=== PATIENT | male | born 1985 | race Caucasian/White ===

== ENCOUNTER 2017-01-05 12:31 | Inpatient (IN) | payer BC ==
[2017-01-05] MEDS ORDERED: Ondansetron 4 MG/2 ML SDV IVPUSH ONE (14:00)
[2017-01-05] MEDS ORDERED: Sodium Chloride 0.9% 1,000 ML IV ONE ×2 (14:00→16:13)
[2017-01-05] MEDS ORDERED: Pantoprazole 40 MG Vial IVPUSH ONE (14:00)
--- NOTE | 2017-01-05 14:01 | EDM.PDOC ---
ED HPI GENERAL MEDICAL PROBLEM - General Chief Complaint: Abdominal Pain Stated Complaint: ABDOMINAL PAIN Time Seen by Provider: 01/05/17 12:34 - History of Present Illness INITIAL COMMENTS - FREE TEXT/NARRATIVE: HISTORY AND PHYSICAL: History of present illness: []Patient presents with epigastric pain he rates 7 out of 10 radiating to the back he also has an element of left upper quadrant pain no fever intermittent nausea is been unable to eat without pain for several days does admit to drinking alcohol he prefers to drink whiskey he admits to drinking heavily 2 weeks prior, limited drinking over the last week due to pain. No fever vomiting chills sweats Review of systems: As per history of present illness and below otherwise all systems reviewed and negative. Past medical history: As per history of present illness and as reviewed below otherwise noncontributory. Surgical history: As per history of present illness and as reviewed below otherwise noncontributory. Social history: No reported history of drug or alcohol abuse. Family history: As per history of present illness and as reviewed below otherwise noncontributory. Physical exam: HEENT: Atraumatic, normocephalic, pupils reactive, negative for conjunctival pallor or scleral icterus, mucous membranes moist, throat clear, neck supple, nontender, trachea midline. Lungs: Clear to auscultation, breath sounds equal bilaterally, chest nontender. Heart: S1S2, regular, negative for clicks, rubs, or JVD. Abdomen: Soft, nondistended, nontender in the right upper and lower quadrants no guarding or rebound there is epigastric tenderness as well as left upper quadrant tenderness. Negative for masses or hepatosplenomegaly. Negative for costovertebral tenderness. Pelvis: Stable nontender. Genitourinary: Deferred. Rectal: Deferred. Extremities: Atraumatic, negative for cords or calf pain. Neurovascular unremarkable. Neuro: Awake, alert, oriented. Cranial nerves II through XII unremarkable. Cerebellum unremarkable. Motor and sensory unremarkable throughout. Exam nonfocal. Diagnostics: []Lab as below CT with contrast Therapeutics: [1 L normal saline bolus Zofran 8 mg IV Morphine 2 mg IV ] Impression: [Acute pancreatitis Leukocytosis] Definitive disposition and diagnosis as appropriate pending reevaluation and review of above. LUQ Pain Score (Numeric/FACES): 7 - Related Data Allergies Allergy/AdvReac Type Severity Reaction Status Date / Time ibuprofen Allergy Swollen Verified 01/05/17 13:55 Tongue Home Meds: Home Meds . [No Known Home Meds] 01/05/17 [History] Past Medical History HEENT History: Reports: Other (See Below) Other HEENT History: tubes in both ears - Past Surgical History Musculoskeletal Surgical History: Reports: Other (See Below) Social & Family History - Tobacco Use Smoking Status *Q: Current Every Day Smoker Years of Tobacco use: 10 Packs/Tins Daily: 3 Used Tobacco, but Quit: No Second Hand Smoke Exposure: Yes - Caffeine Use Caffeine Use: Reports: Coffee, Energy Drinks - Recreational Drug Use Recreational Drug Use: No ED ROS GENERAL - Review of Systems Review Of Systems: ROS reveals no pertinent complaints other than HPI. ED EXAM, GENERAL - Physical Exam Exam: See Below Course - Vital Signs Last Recorded V/S: Last Vital Signs Temp 37.2 C 01/05/17 13:56 Pulse 98 01/05/17 13:56 Resp 18 01/05/17 13:56 BP 157/91 H 01/05/17 13:56 Pulse Ox 96 01/05/17 13:56 - Orders/Labs/Meds Labs: Laboratory Tests 01/05/17 01/05/17 01/05/17 Range/Units 14:11 14:11 14:11 WBC 14.20 H (4.0-11.0) K/uL RBC 5.19 (4.50-5.90) M/uL Hgb 15.9 (13.0-17.0) g/dL Hct 46.5 (38.0-50.0) % MCV 89.6 (80.0-98.0) fL MCH 30.6 (27.0-32.0) pg MCHC 34.2 (31.0-37.0) g/dL RDW Std Deviation 44.4 (28.0-62.0) fl RDW Coeff of Ananda 14 (11.0-15.0) % Plt Count 289 (150-400) K/uL MPV 10.50 (7.40-12.00) fL Neut % (Auto) 69.9 (48.0-80.0) % Lymph % (Auto) 20.8 (16.0-40.0) % Louis[place] % (Auto) 6.3 (0.0-15.0) % Eos % (Auto) 2.6 (0.0-7.0) % Baso % (Auto) 0.4 (0.0-1.5) % Neut # (Auto) 9.9 H (1.4-5.7) K/uL Lymph # (Auto) 3.0 H (0.6-2.4) K/uL Louisa # (Auto) 0.9 H (0.0-0.8) K/uL Eos # (Auto) 0.4 (0.0-0.7) K/uL Baso # (Auto) 0.1 (0.0-0.1) K/uL Nucleated RBC % 0.0 /100WBC Nucleated RBCs # 0 K/uL Sodium 137 (136-146) mmol/L Potassium 3.9 (3.5-5.1) mmol/L Chloride 105 (98-110) mmol/L Carbon Dioxide 19 L (21-31) mmol/L BUN 18 (6.0-23.0) mg/dL Creatinine 1.2 (0.6-1.5) mg/dL Est Cr Clr Drug Dosing 114.47 mL/min Estimated GFR (MDRD) > 60.0 ml/min Glucose 113 H (60-110) mg/dL Calcium 10.0 (8.8-10.8) mg/dL Total Bilirubin 0.3 (0.1-1.5) mg/dL AST 34 (5-40) IU/L ALT 56 H (8-54) IU/L Alkaline Phosphatase 63 (40-150) Troponin I < 0.10 (0.0-0.29) NG/ML Total Protein 7.7 (6.0-8.0) g/dL Albumin 4.1 (3.5-5.0) g/dL Globulin 3.6 H (2.0-3.5) g/dL Albumin/Globulin Ratio 1.1 L (1.3-2.8) Amylase 54 (10-90) U/L Lipase 187 H (7-80) U/L Urine Color Urine Appearance Urine pH (5.0-8.0) Ur Specific [place] (1.001-1.035) Urine Protein (NEGATIVE) mg/dL Urine Glucose (UA) (NEGATIVE) mg/dL Urine Ketones (NEGATIVE) mg/dL Urine Occult Blood (NEGATIVE) Urine Nitrite (NEGATIVE) Urine Bilirubin (NEGATIVE) Urine Urobilinogen (<2.0) EU/dL Ur Leukocyte Esterase (NEGATIVE) Urine RBC (0-2/HPF) Urine WBC (0-5/HPF) Ur Epithelial Cells (NONE-FEW) Urine Bacteria (NEGATIVE) 01/05/17 Range/Units 14:36 WBC (4.0-11.0) K/uL RBC (4.50-5.90) M/uL Hgb (13.0-17.0) g/dL Hct (38.0-50.0) % MCV (80.0-98.0) fL MCH (27.0-32.0) pg MCHC (31.0-37.0) g/dL RDW Std Deviation (28.0-62.0) fl RDW Coeff of Ananda (11.0-15.0) % Plt Count (150-400) K/uL MPV (7.40-12.00) fL Neut % (Auto) (48.0-80.0) % Lymph % (Auto) (16.0-40.0) % [place] % (Auto) (0.0-15.0) % Eos % (Auto) (0.0-7.0) % Baso % (Auto) (0.0-1.5) % Neut # (Auto) (1.4-5.7) K/uL Lymph # (Auto) (0.6-2.4) K/uL [place] # (Auto) (0.0-0.8) K/uL Eos # (Auto) (0.0-0.7) K/uL Baso # (Auto) (0.0-0.1) K/uL Nucleated RBC % /100WBC Nucleated RBCs # K/uL Sodium (136-146) mmol/L Potassium (3.5-5.1) mmol/L Chloride (98-110) mmol/L Carbon Dioxide (21-31) mmol/L BUN (6.0-23.0) mg/dL Creatinine (0.6-1.5) mg/dL Est Cr Clr Drug Dosing mL/min Estimated GFR (MDRD) ml/min Glucose (60-110) mg/dL Calcium (8.8-10.8) mg/dL Total Bilirubin (0.1-1.5) mg/dL AST (5-40) IU/L ALT (8-54) IU/L Alkaline Phosphatase (40-150) Troponin I (0.0-0.29) NG/ML Total Protein (6.0-8.0) g/dL Albumin (3.5-5.0) g/dL Globulin (2.0-3.5) g/dL Albumin/Globulin Ratio (1.3-2.8) Amylase (10-90) U/L Lipase (7-80) U/L Urine Color YELLOW Urine Appearance CLEAR Urine pH 6.0 (5.0-8.0) Ur Specific [place] 1.015 (1.001-1.035) Urine Protein NEGATIVE (NEGATIVE) mg/dL Urine Glucose (UA) NEGATIVE (NEGATIVE) mg/dL Urine Ketones NEGATIVE (NEGATIVE) mg/dL Urine Occult Blood TRACE-LYSED (NEGATIVE) Urine Nitrite NEGATIVE (NEGATIVE) Urine Bilirubin NEGATIVE (NEGATIVE) Urine Urobilinogen 0.2 (<2.0) EU/dL Ur Leukocyte Esterase NEGATIVE (NEGATIVE) Urine RBC 0-1 (0-2/HPF) Urine WBC 0-1 (0-5/HPF) Ur Epithelial Cells OCCASIONAL (NONE-FEW) Urine Bacteria RARE (NEGATIVE) Meds: Medications Discontinued Medications Generic Name Dose Route Start Last Admin Trade Name Karthikq PRN Reason Stop Dose Admin Sodium Chloride 1,000 mls @ 999 mls/hr 01/05/17 14:00 01/05/17 14:15 Normal Saline IV 01/05/17 15:00 999 mls/hr STAT ONE Administration Iopamidol 100 ml 01/05/17 15:06 01/05/17 15:07 Isovue Multipack-370 (76%) IVPUSH 01/05/17 15:07 100 ml ONETIME STA Administration Ondansetron HCl 8 mg 01/05/17 14:00 01/05/17 14:16 Zofran IVPUSH 01/05/17 14:01 8 mg ONETIME ONE Administration Pantoprazole Sodium 80 mg 01/05/17 14:00 01/05/17 14:16 Protonix Iv IVPUSH 01/05/17 14:01 80 mg .BOLUS ONE Administration Departure - Departure Time of Disposition: 16:12 Disposition: Admitted As Inpatient 68 Condition: Fair Clinical Impression: Acute pancreatitis - Discharge Information Referrals: PCP,None [Primary Care Provider] - Forms: ED Department Discharge
[2017-01-05 14:42] LABS: CHLORIDE,CL 105 mmol/L (98-110); SODIUM,NA 137 mmol/L (136-146)
[2017-01-05] MEDS ORDERED: Iopamidol 755 MG/ML 500 ML Multipack Bottle IVPUSH STA (15:06)
--- NOTE | 2017-01-05 15:38 | CT ---
CT of the abdomen and pelvis with contrast. HISTORY: Pain TECHNIQUE: Axial CT images were obtained of the abdomen and pelvis following administration of 100 mL of Isovue-370 in the left antecubital fossa without complication. Coronal and sagittal reconstructio ns obtained. FINDINGS: The lungs are clear without focal consolidation. There is fatty infiltration of the liver. The gallbladder, adrenal glands, and spleen appear normal. The pancreas is normal. There is no bulky retroperitoneal lymphadenopathy or abdominal ascites. The kidneys enhance and function symmetrically without evidence of obstructive uropathy. The large and small bowel are normal in caliber without evidence of obstruction. No focal pericolonic inflammation or stranding. The appendix is normal. The urinary bladder is normal. There is no bulky pelvic lymphadenopathy or free pelvic fluid. No suspicious osseous abnormalities identified. IMPRESSION: 1. No acute findings within the abdomen or pelvis. 2. Fatty infiltration of the liver.
[2017-01-05] MEDS ORDERED: Morphine 10 MG/ML Syringe IV ONE (16:13)
[2017-01-05] MEDS ORDERED: Ondansetron 4 MG/2 ML SDV IVPUSH PRN (17:09)
[2017-01-05] MEDS ORDERED: HYDROmorphone 2 MG/ML Syringe IVPUSH PRN (17:09)
--- NOTE | 2017-01-05 17:43 | PCM.HP ---
<Dina Dent M - Last Filed: 01/05/17 18:07> H&P History of Present Illness - General Date of Service: 01/05/17 Admit Problem/Dx: Admission Diagnosis/Problem Admission Diagnosis/Problem Pancreatitis Source of Information: Patient History Limitations: Reports: No Limitations - History of Present Illness Initial Comments - Free Text/Narative: This 31 year old male with pmh of tubes to bilateral ears, heavy tobacco use and obesity presented to the ED today with 1 week of left abdominal pain and epigastric pain. He reports this pain started about 1 week ago, denies fever, lower abdominal pain, some diarrhea, but this is not changed from his normal. Some pain with eating but no nausea or vomiting. He confirms drinking heavily a couple weeks ago and having a few nights with drinking, but denies drinking on a daily basis. He did have a few drinks last evening which worsened his pain. He does have a history of gastric ulcers and GERD. He normally just takes Tums for this. He is allergic to NSAIDs, so he does not take these. He also mentioned his R ear has been sore lately, with some drainage noted. In the ED leukocytosis noted, 14,000 lipase 187. Abdominal/Pelvis CT revealed no acute findings, but noted fatty infiltration of liver. He will be admitted for pancreatitis. He was given 1 l bolus NS in ED and morphine for pain. LUQ Pain Score (Numeric/FACES): 7 - Related Data Allergies/Adverse Reactions: Allergies Allergy/AdvReac Type Severity Reaction Status Date / Time ibuprofen Allergy Swollen Verified 01/05/17 13:55 Tongue Home Medications: Home Meds . [No Known Home Meds] 01/05/17 [History] Past Medical History HEENT History: Reports: Other (See Below) Other HEENT History: tubes in both ears Cardiovascular History: Reports: None. Denies: Afib, Blood Clots/VTE/DVT, CAD, Hypertension, [place] Respiratory History: Reports: None. Denies: Asthma, COPD Gastrointestinal History: Reports: GERD Genitourinary History: Reports: None Musculoskeletal History: Reports: Fracture Endocrine/Metabolic History: Reports: Obesity/BMI 30+. 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 Denies: Fever, Chills, Malaise HEENT: Reports: Ear Pain (R ear) Pulmonary: Reports: No Symptoms. Denies: Shortness of Breath, Cough, Sputum Cardiovascular: Reports: No Symptoms. Denies: Chest Pain, Palpitations, Edema Gastrointestinal: Reports: Abdominal Pain (L upper and epigastric), Decreased Appetite, Flatus. Denies: Black Stool, Bloody Stool, Distension, Nausea, Vomiting Genitourinary: Reports: No Symptoms. Denies: Dysuria, Frequency, Burning Musculoskeletal: Reports: No Symptoms. Denies: Neck Pain Skin: Reports: No Symptoms Psychiatric: Reports: No Symptoms Hematologic/Lymphatic: Reports: No Symptoms Immunologic: Reports: No Symptoms Exam - Exam Exam: See Below - Vital Signs Vital Signs: Last Vital Signs Temp 98.9 F 01/05/17 13:56 Pulse 98 01/05/17 13:56 Resp 18 01/05/17 13:56 BP 157/91 H 01/05/17 13:56 Pulse Ox 96 01/05/17 13:56 Weight: 180 kg - Exam General: Alert, Oriented, Cooperative HEENT: Conjunctiva Clear, Mucosa Moist & [place], Nares Patent, Pupils Reactive. No: TMs Clear (R TM has pe tube noted, with erythema and purulence. L ear TM clear no tube noted, no erythema) Neck: Supple, Trachea Midline, 2 Lungs: Clear to Auscultation, Normal Respiratory Effort Cardiovascular: Regular Rate, Regular Rhythm, Normal S1, Normal S2 GI/Abdominal Exam: Normal Bowel Sounds, Soft, No Distention, Tender (Epigastric region and L upper abd. ), Other (obese abdomen.) Extremities: Normal Inspection, Normal Range of Motion, Non-Tender, No Pedal Edema, Normal Capillary Refill Skin: Other (multiple small abrasion and scabs to arms and chest. Patient reports) Neurological: Cranial Nerves Intact Neuro Extensive - Mental Status: Alert, Oriented x3 Psychiatric: Alert, Normal Affect, Normal Mood - Patient Data Result Diagrams: 01/05/17 14:11 01/05/17 14:11 *Q Meaningful Use (ADM) - VTE *Q VTE Criteria *Q: - Stroke *Q Stroke Criteria *Q: - AMI *Q AMI Criteria *Q: - Problem List (1) Acute pancreatitis SNOMED Code(s): 808044167 ICD Code: K85.90 - ACUTE PANCREATITIS WITHOUT NECROSIS OR INFECTION, UNSP Status: Acute Current Visit: Yes QualifierTitle: Pancreatitis type: alcohol induced Acute pancreatitis complication: no infection or necrosis Qualified Code(s): K85.20 - Alcohol induced acute pancreatitis without necrosis or infection (2) Acute otitis media SNOMED Code(s): 6072292 ICD Code: H66.90 - OTITIS MEDIA, UNSPECIFIED, UNSPECIFIED EAR Status: Acute Current Visit: Yes QualifierTitle: Otitis media type: serous Laterality: right Recurrence : not specified as recurrent Qualified Code(s): H65.01 - Acute serous otitis media, right ear (3) Obesity SNOMED Code(s): 484637953 ICD Code: E66.9 - OBESITY, UNSPECIFIED Status: Chronic Current Visit: Yes QualifierTitle: Obesity type: due to excess calories Serious obesity comorbidity presence: without serious comorbidity Body mass index: BMI 45.0- 49.9 Problem List Initiated/Reviewed/Updated: Yes Orders Last 24hrs: Active Orders 24 hr Category Date Time Status Intake and Output [RC] QSHIFT Care 01/05/17 17:10 Ordered Oxygen Therapy [RC] PRN Care 01/05/17 17:09 Ordered Up ad Tere [RC] ASDIRECTED Care 01/05/17 17:09 Ordered VTE/DVT Education [RC] PER UNIT ROUTINE Care 01/05/17 17:09 Ordered Vital Signs [RC] Q4H Care 01/05/17 17:09 Ordered Nothing Per Oral Diet [DIET] Diet 01/06/17 Breakfast Ordered Abdomen Comp [US] Urgent Exams 01/05/17 17:12 Ordered CBC WITH AUTO DIFF [HEME] AM Lab 01/06/17 05:11 Ordered CBC WITH AUTO DIFF [HEME] AM Lab 01/07/17 05:11 Ordered CBC WITH AUTO DIFF [HEME] AM Lab 01/08/17 05:11 Ordered COMPREHENSIVE METABOLIC PN,CMP [CHEM] AM Lab 01/06/17 05:11 Ordered COMPREHENSIVE METABOLIC PN,CMP [CHEM] AM Lab 01/07/17 05:11 Ordered COMPREHENSIVE METABOLIC PN,CMP [CHEM] AM Lab 01/08/17 05:11 Ordered LIPASE [CHEM] Routine Lab 01/06/17 05:00 Ordered Enoxaparin [Lovenox] Med 01/06/17 09:00 Ordered 40 mg SUBCUT DAILY HYDROmorphone [Dilaudid] Med 01/05/17 17:09 Ordered 0.5 mg IVPUSH Q2H PRN Nicotine [Habitrol] Med 01/05/17 17:45 Ordered 21 mg TRDERM DAILY Ondansetron [Zofran] Med 01/05/17 17:09 Ordered 4 mg IVPUSH Q4H PRN Pantoprazole [ProTONIX IV] 40 mg Med 01/06/17 09:00 Active Sodium Chloride 0.9% [Normal Saline] 10 ml IV DAILY Sodium Chloride 0.9% [Normal Saline] 1,000 ml Med 01/05/17 17:15 Ordered IV .BOLUS Sodium Chloride 0.9% [Normal Saline] 1,000 ml Med 01/05/17 17:15 Ordered IV ASDIRECTED Resuscitation Status Routine Resus Stat 01/05/17 17:09 Ordered Medication Orders Enoxaparin Sodium (Lovenox) 40 mg SUBCUT DAILY JODY Hydromorphone HCl (Dilaudid) 0.5 mg IVPUSH Q2H PRN PRN Reason: Pain (severe 7-10) Sodium Chloride (Normal Saline) 1,000 mls @ 250 mls/hr IV ASDIRECTED JODY Sodium Chloride (Normal Saline) 1,000 mls @ 999 mls/hr IV .BOLUS JODY Pantoprazole Sodium 40 mg/ (Sodium Chloride) 10 mls @ 300 mls/hr IV DAILY JODY Nicotine (Habitrol) 21 mg TRDERM DAILY JODY Ondansetron HCl (Zofran) 4 mg IVPUSH Q4H PRN PRN Reason: Nausea Assessment/Plan Comment:: This 31 year old male admitted with acute pancreatitis likely alcohol induced. 1. Acute pancreatitis: Will obtain RUQ U/S to rule out stones. Lipid panel reveals Triglycerides 366, non fasting. No at home medications. Likely linked to recent heavy alcohol intake. Will treat with 2 L bolus now and then NS at 250 ml/hr. Leukocytosis noted, will monitor no antibiotics needed at this time, no necrosis noted on CT. Will monitor lipase in am and CMP. Supplement with thiamine and folic acid. Denies daily alcohol intake 2. Acute otitis media: R ear, discussed with Dr. Adams. Will order Cipro HC Otic drops BID. Monitor. No fevers. 3. Heavy tobacco use: Encouraged to stop, he reports no urge to stop at this time. Nicotine patch 21 mg daily. 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 VTE prophylaxis: Lovenox. Discussed code status with patient, he reports wanting to be DNR, "If my heart stops, don't restart it, I am already gone, what is the use." He will be changed to DNR. <Tre Adams - Last Filed: 01/05/17 22:24> H&P History of Present Illness - General Admit Problem/Dx: Admission Diagnosis/Problem Admission Diagnosis/Problem Pancreatitis Exam - Vital Signs Vital Signs: Last Vital Signs Temp 36.4 C 01/05/17 20:00 Pulse 79 01/05/17 20:00 Resp 20 01/05/17 20:00 BP 125/74 01/05/17 20:00 Pulse Ox 98 01/05/17 20:00 - Patient Data Result Diagrams: 01/05/17 14:11 01/05/17 14:11 *Q Meaningful Use (ADM) - VTE *Q VTE Criteria *Q: - Stroke *Q Stroke Criteria *Q: - AMI *Q AMI Criteria *Q: Orders Last 24hrs: Active Orders 24 hr Category Date Time Status Intake and Output [RC] QSHIFT Care 01/05/17 17:10 Active Oxygen Therapy [RC] PRN Care 01/05/17 17:09 Active Up ad Tere [RC] ASDIRECTED Care 01/05/17 17:09 Active VTE/DVT Education [RC] PER UNIT ROUTINE Care 01/05/17 17:09 Active Vital Signs [RC] Q4H Care 01/05/17 17:09 Active Nothing Per Oral Diet [DIET] Diet 01/06/17 Breakfast Active Abdomen Comp [US] Urgent Exams 01/05/17 17:12 Ordered CBC WITH AUTO DIFF [HEME] AM Lab 01/06/17 05:11 Ordered CBC WITH AUTO DIFF [HEME] AM Lab 01/07/17 05:11 Ordered CBC WITH AUTO DIFF [HEME] AM Lab 01/08/17 05:11 Ordered COMPREHENSIVE METABOLIC PN,CMP [CHEM] AM Lab 01/06/17 05:11 Ordered COMPREHENSIVE METABOLIC PN,CMP [CHEM] AM Lab 01/07/17 05:11 Ordered COMPREHENSIVE METABOLIC PN,CMP [CHEM] AM Lab 01/08/17 05:11 Ordered LIPASE [CHEM] Routine Lab 01/06/17 05:00 Ordered Ciprofloxacin/Hydrocortisone [Cipro HC Otic Susp] Med 01/05/17 17:45 Active 3 ml EARRT BID Enoxaparin [Lovenox] Med 01/06/17 09:00 Active 40 mg SUBCUT DAILY HYDROmorphone [Dilaudid] Med 01/05/17 17:09 Active 0.5 mg IVPUSH Q2H PRN Nicotine [Habitrol] Med 01/05/17 17:45 Active 21 mg TRDERM DAILY Ondansetron [Zofran] Med 01/05/17 17:09 Active 4 mg IVPUSH Q4H PRN Pantoprazole [ProTONIX IV] 40 mg Med 01/06/17 09:00 Active Sodium Chloride 0.9% [Normal Saline] 10 ml IV DAILY Sodium Chloride 0.9% [Normal Saline] 1,000 ml Med 01/05/17 17:15 Active IV ASDIRECTED Resuscitation Status Routine Resus Stat 01/05/17 17:09 Ordered Medication Orders Ciprofloxacin/Hydrocortisone (Cipro Hc Otic Susp) 3 ml EARRT BID JODY Last Admin: 01/05/17 20:28 Dose: 3 drop Admin: 01/05/17 20:09 Dose: Enoxaparin Sodium (Lovenox) 40 mg SUBCUT DAILY JODY Hydromorphone HCl (Dilaudid) 0.5 mg IVPUSH Q2H PRN PRN Reason: Pain (severe 7-10) Last Admin: 01/05/17 21:59 Dose: 0.5 mg Sodium Chloride (Normal Saline) 1,000 mls @ 250 mls/hr IV ASDIRECTED JODY Last Admin: 01/05/17 20:29 Dose: 250 mls/hr Pantoprazole Sodium 40 mg/ (Sodium Chloride) 10 mls @ 300 mls/hr IV DAILY JODY Nicotine (Habitrol) 21 mg TRDERM DAILY [facility] Last Admin: 01/05/17 19:37 Dose: 21 mg Ondansetron HCl (Zofran) 4 mg IVPUSH Q4H PRN PRN Reason: Nausea - Free Text/Narrative Note: Dr. Adams writes: I am seeing this patient and have evaluated his condition and laboratory studies. Agree with Salina Dent AUDIT CONSULTANT's evaluation, plan, and write up.
[2017-01-05] MEDS: Sodium Chloride 0.9% 1,000 ML IV SCH ×3 (18:43→20:29)
[2017-01-05] MEDS: Nicotine 21 MG/24 Hr Patch TRDERM SCH (19:37)
[2017-01-05] MEDS: Ciprofloxacin/Hydrocortisone Otic Susp 10 ML Bottle EARRT SCH ×2 (20:09→20:28)
[2017-01-06] MEDS: Sodium Chloride 0.9% 1,000 ML IV SCH ×3 (00:37→10:23)
[2017-01-06 06:04] LABS: CHLORIDE,CL 110 mmol/L (98-110); SODIUM,NA 141 mmol/L (136-146)
--- NOTE | 2017-01-06 08:07 | PCM.PN ---
<Dina Dent M - Last Filed: 01/06/17 10:01> - General Info Date of Service: 01/06/17 Admission Dx/Problem (Free Text): Admission Diagnosis/Problem Admission Diagnosis/Problem Pancreatitis Subjective Update: Doing better this am, hoping to start diet today. Pain is better, no nausea and no vomiting. Getting anxious and frustrated due to the inability to smoke or use tobacco products, Nicotine patch in place. Denies chest pain or SOB. abdomen is slightly tender, but wants to try diet. No pain meds since 2100 last evening. Functional Status: Reports: Pain Controlled, Ambulating, Urinating - Review of Systems General: Reports: No Symptoms. Denies: Fever HEENT: Reports: No Symptoms. Denies: Ear Pain, Headaches, Visual Changes Pulmonary: Reports: No Symptoms. Denies: Shortness of Breath, Pleuritic Chest Pain, Cough Cardiovascular: Reports: No Symptoms. Denies: Chest Pain, Palpitations Gastrointestinal: Reports: Abdominal Pain (tedner to epigastrium and LUQ), Flatus. Denies: Nausea, Vomiting Genitourinary: Reports: No Symptoms. Denies: Dysuria, Frequency Musculoskeletal: Reports: No Symptoms Psychiatric: Reports: Anxiety (due to lack of ability to smoke or use chewing tobacco) - Patient Data Vitals - Most Recent: Last Vital Signs Temp 98.7 F 01/06/17 04:00 Pulse 76 01/06/17 04:00 Resp 20 01/06/17 04:00 BP 132/58 L 01/06/17 04:00 Pulse Ox 96 01/06/17 04:00 Weight - Most Recent: 180 kg I&O - Last 24 Hours: Intake & Output 01/05/17 01/06/17 01/06/17 22:59 06:59 14:59 Intake Total 1000 2000 Output Total 1650 Balance 1000 350 Lab Results Last 24 Hours: Laboratory Results - last 24 hr 01/06/17 01/06/17 01/06/17 Range/Units 04:52 04:52 04:52 WBC 10.14 (4.0-11.0) K/uL RBC 4.76 (4.50-5.90) M/uL Hgb 14.5 (13.0-17.0) g/dL Hct 43.1 (38.0-50.0) % MCV 90.5 (80.0-98.0) fL MCH 30.5 (27.0-32.0) pg MCHC 33.6 (31.0-37.0) g/dL RDW Std Deviation 44.5 (28.0-62.0) fl RDW Coeff of Ananda 14 (11.0-15.0) % Plt Count 255 (150-400) K/uL MPV 10.90 (7.40-12.00) fL Neut % (Auto) 57.1 (48.0-80.0) % Lymph % (Auto) 31.5 (16.0-40.0) % [place] % (Auto) 6.9 (0.0-15.0) % Eos % (Auto) 4.0 (0.0-7.0) % Baso % (Auto) 0.5 (0.0-1.5) % Neut # (Auto) 5.8 H (1.4-5.7) K/uL Lymph # (Auto) 3.2 H (0.6-2.4) K/uL [place] # (Auto) 0.7 (0.0-0.8) K/uL Eos # (Auto) 0.4 (0.0-0.7) K/uL Baso # (Auto) 0.1 (0.0-0.1) K/uL Nucleated RBC % 0.0 /100WBC Nucleated RBCs # 0 K/uL Sodium 141 (136-146) mmol/L Potassium 3.9 (3.5-5.1) mmol/L Chloride 110 (98-110) mmol/L Carbon Dioxide 23 (21-31) mmol/L BUN 14 (6.0-23.0) mg/dL Creatinine 1.1 (0.6-1.5) mg/dL Est Cr Clr Drug Dosing 124.88 mL/min Estimated GFR (MDRD) > 60.0 ml/min Glucose 92 (60-110) mg/dL Calcium 8.5 L (8.8-10.8) mg/dL Total Bilirubin 0.5 (0.1-1.5) mg/dL AST 35 (5-40) IU/L ALT 50 (8-54) IU/L Alkaline Phosphatase 50 (40-150) Total Protein 6.0 (6.0-8.0) g/dL Albumin 3.4 L (3.5-5.0) g/dL Globulin 2.6 (2.0-3.5) g/dL Albumin/Globulin Ratio 1.3 (1.3-2.8) Lipase 77 (7-80) U/L Med Orders - Current: Current Medications Ciprofloxacin/Hydrocortisone (Cipro Hc Otic Susp) 3 ml EARRT BID [facility] Last Admin: 01/05/17 20:28 Dose: 3 drop Enoxaparin Sodium (Lovenox) 40 mg SUBCUT DAILY [facility] Hydromorphone HCl (Dilaudid) 0.5 mg IVPUSH Q2H PRN PRN Reason: Pain (severe 7-10) Last Admin: 01/05/17 21:59 Dose: 0.5 mg Sodium Chloride (Normal Saline) 1,000 mls @ 250 mls/hr IV ASDIRECTED [facility] Last Admin: 01/06/17 05:02 Dose: 250 mls/hr Pantoprazole Sodium 40 mg/ (Sodium Chloride) 10 mls @ 300 mls/hr IV DAILY [facility] Nicotine (Habitrol) 21 mg TRDERM DAILY [facility] Last Admin: 01/05/17 19:37 Dose: 21 mg Ondansetron HCl (Zofran) 4 mg IVPUSH Q4H PRN PRN Reason: Nausea Discontinued Medications Sodium Chloride (Normal Saline) 1,000 mls @ 999 mls/hr IV STAT ONE Stop: 01/05/17 15:00 Last Admin: 01/05/17 14:15 Dose: 999 mls/hr Sodium Chloride (Normal Saline) 1,000 mls @ 999 mls/hr IV STAT ONE Stop: 01/05/17 17:13 Last Admin: 01/05/17 17:07 Dose: 999 mls/hr Sodium Chloride (Normal Saline) 1,000 mls @ 999 mls/hr IV .BOLUS [facility] Last Admin: 01/05/17 19:44 Dose: 999 mls/hr Iopamidol (Isovue Multipack-370 (76%)) 100 ml IVPUSH ONETIME STA Stop: 01/05/17 15:07 Last Admin: 01/05/17 15:07 Dose: 100 ml Morphine Sulfate (Morphine) 2 mg IV ONETIME ONE Stop: 01/05/17 16:14 Last Admin: 01/05/17 17:08 Dose: 2 mg Ondansetron HCl (Zofran) 8 mg IVPUSH ONETIME ONE Stop: 01/05/17 14:01 Last Admin: 01/05/17 14:16 Dose: 8 mg Pantoprazole Sodium (Protonix Iv) 80 mg IVPUSH .BOLUS ONE Stop: 01/05/17 14:01 Last Admin: 01/05/17 14:16 Dose: 80 mg Pantoprazole Sodium (Protonix Iv) 40 mg IV DAILY [facility] - Exam Quality Assessment: DVT Prophylaxis. No: Supplemental Oxygen General: Alert, Oriented, Cooperative Neck: Supple Lungs: Clear to Auscultation, Normal Respiratory Effort Cardiovascular: Regular Rate, Regular Rhythm GI/Abdominal Exam: Normal Bowel Sounds, Soft, No Organomegaly, No Mass, Tender ( scant tenderness to epigastric region) Neurological: No New Focal Deficit Psy/Mental Status: Alert, Normal Affect, Normal Mood - Problem List & Annotations (1) Acute pancreatitis SNOMED Code(s): 558349917 Code(s): K85.90 - ACUTE PANCREATITIS WITHOUT NECROSIS OR INFECTION, UNSP Status: Acute QualifierTitle: Pancreatitis type: alcohol induced Acute pancreatitis complication: no infection or necrosis Qualified Code(s): K85.20 - Alcohol induced acute pancreatitis without necrosis or infection (2) Acute otitis media SNOMED Code(s): 7918622 Code(s): H66.90 - OTITIS MEDIA, UNSPECIFIED, UNSPECIFIED EAR Status: Acute QualifierTitle: Otitis media type: serous Laterality: right Recurrence : not specified as recurrent Qualified Code(s): H65.01 - Acute serous otitis media, right ear (3) Obesity SNOMED Code(s): 661373162 Code(s): E66.9 - OBESITY, UNSPECIFIED Status: Chronic QualifierTitle: Obesity type: due to excess calories Serious obesity comorbidity presence: without serious comorbidity Body mass index: BMI 45.0- 49.9 - Problem List Review Problem List Initiated/Reviewed/Updated: Yes - My Orders Last 24 Hours: My Active Orders 01/05/17 17:09 Oxygen Therapy [RC] PRN Up ad Tere [RC] ASDIRECTED VTE/DVT Education [RC] PER UNIT ROUTINE Vital Signs [RC] Q4H HYDROmorphone [Dilaudid] 0.5 mg IVPUSH Q2H PRN Ondansetron [Zofran] 4 mg IVPUSH Q4H PRN Resuscitation Status Routine 01/05/17 17:10 Intake and Output [RC] Q12H 01/05/17 17:15 Sodium Chloride 0.9% [Normal Saline] 1,000 ml IV ASDIRECTED 01/05/17 17:45 Ciprofloxacin/Hydrocortisone [Cipro HC Otic Susp] 3 ml EARRT BID Nicotine [Habitrol] 21 mg TRDERM DAILY 01/06/17 09:00 Enoxaparin [Lovenox] 40 mg SUBCUT DAILY Pantoprazole [ProTONIX IV] 40 mg Sodium Chloride 0.9% [Normal Saline] 10 ml IV DAILY 01/06/17 17:12 Abdomen Ltd [US] Urgent 01/06/17 Breakfast Nothing Per Oral Diet [DIET] 01/07/17 05:11 CBC WITH AUTO DIFF [HEME] AM COMPREHENSIVE METABOLIC PN,CMP [CHEM] AM 01/08/17 05:11 CBC WITH AUTO DIFF [HEME] AM COMPREHENSIVE METABOLIC PN,CMP [CHEM] AM - Plan Plan:: This 31 year old male admitted with acute pancreatitis likely alcohol induced. 1. Acute pancreatitis: RUQ U/S revealed fatty infiltration of liver, no gallbladder wall thickness of stones. Lipid panel reveals Triglycerides 366, non fasting. Pancreatitis ikely linked to recent heavy alcohol intake. Continue NS at 250 ml/hr. Leukocytosis resolved. Wants to try CL diet, will advance diet this morning. AST/ALT improved. Encouraged no alcohol intake and low fat diet for next few weeks. 2. Acute otitis media: Continue Cipro HC Otic drops BID. Monitor. No fevers. 3. Heavy tobacco use: Encouraged to stop, he reports no urge to stop at this time. Nicotine patch 21 mg daily. 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 VTE prophylaxis: Lovenox. Dispo: Possible discharge later today if tolerates diet. <Tre Adams - Last Filed: 01/06/17 16:36> - Patient Data Vitals - Most Recent: Last Vital Signs Temp 36.6 C 01/06/17 12:10 Pulse 80 01/06/17 12:10 Resp 14 01/06/17 12:10 BP 136/81 01/06/17 12:10 Pulse Ox 96 01/06/17 12:10 I&O - Last 24 Hours: Intake & Output 01/06/17 01/06/17 01/06/17 06:59 14:59 22:59 Intake Total 1999 1010 670 Output Total 1650 800 Balance 350 1010 -130 Lab Results Last 24 Hours: Laboratory Results - last 24 hr 01/06/17 01/06/17 01/06/17 Range/Units 04:52 04:52 04:52 WBC 10.14 (4.0-11.0) K/uL RBC 4.76 (4.50-5.90) M/uL Hgb 14.5 (13.0-17.0) g/dL Hct 43.1 (38.0-50.0) % MCV 90.5 (80.0-98.0) fL MCH 30.5 (27.0-32.0) pg MCHC 33.6 (31.0-37.0) g/dL RDW Std Deviation 44.5 (28.0-62.0) fl RDW Coeff of Ananda 14 (11.0-15.0) % Plt Count 255 (150-400) K/uL MPV 10.90 (7.40-12.00) fL Neut % (Auto) 57.1 (48.0-80.0) % Lymph % (Auto) 31.5 (16.0-40.0) % [place] % (Auto) 6.9 (0.0-15.0) % Eos % (Auto) 4.0 (0.0-7.0) % Baso % (Auto) 0.5 (0.0-1.5) % Neut # (Auto) 5.8 H (1.4-5.7) K/uL Lymph # (Auto) 3.2 H (0.6-2.4) K/uL [place] # (Auto) 0.7 (0.0-0.8) K/uL Eos # (Auto) 0.4 (0.0-0.7) K/uL Baso # (Auto) 0.1 (0.0-0.1) K/uL Nucleated RBC % 0.0 /100WBC Nucleated RBCs # 0 K/uL Sodium 141 (136-146) mmol/L Potassium 3.9 (3.5-5.1) mmol/L Chloride 110 (98-110) mmol/L Carbon Dioxide 23 (21-31) mmol/L BUN 14 (6.0-23.0) mg/dL Creatinine 1.1 (0.6-1.5) mg/dL Est Cr Clr Drug Dosing 124.88 mL/min Estimated GFR (MDRD) > 60.0 ml/min Glucose 92 (60-110) mg/dL Calcium 8.5 L (8.8-10.8) mg/dL Total Bilirubin 0.5 (0.1-1.5) mg/dL AST 35 (5-40) IU/L ALT 50 (8-54) IU/L Alkaline Phosphatase 50 (40-150) Total Protein 6.0 (6.0-8.0) g/dL Albumin 3.4 L (3.5-5.0) g/dL Globulin 2.6 (2.0-3.5) g/dL Albumin/Globulin Ratio 1.3 (1.3-2.8) Lipase 77 (7-80) U/L Med Orders - Current: Current Medications Discontinued Medications Ciprofloxacin/Hydrocortisone (Cipro Hc Otic Susp) 3 ml EARRT BID [facility] Last Admin: 01/06/17 09:10 Dose: 3 drop Enoxaparin Sodium (Lovenox) 40 mg SUBCUT DAILY [facility] Last Admin: 01/06/17 09:16 Dose: 40 mg Hydromorphone HCl (Dilaudid) 0.5 mg IVPUSH Q2H PRN PRN Reason: Pain (severe 7-10) Last Admin: 01/05/17 21:59 Dose: 0.5 mg Sodium Chloride (Normal Saline) 1,000 mls @ 999 mls/hr IV STAT ONE Stop: 01/05/17 15:00 Last Admin: 01/05/17 14:15 Dose: 999 mls/hr Sodium Chloride (Normal Saline) 1,000 mls @ 999 mls/hr IV STAT ONE Stop: 01/05/17 17:13 Last Admin: 01/05/17 17:07 Dose: 999 mls/hr Sodium Chloride (Normal Saline) 1,000 mls @ 250 mls/hr IV ASDIRECTED [facility] Last Admin: 01/06/17 10:23 Dose: 250 mls/hr Sodium Chloride (Normal Saline) 1,000 mls @ 999 mls/hr IV .BOLUS [facility] Last Admin: 01/05/17 19:44 Dose: 999 mls/hr Pantoprazole Sodium 40 mg/ (Sodium Chloride) 10 mls @ 300 mls/hr IV DAILY [facility] Last Admin: 01/06/17 09:17 Dose: 300 mls/hr Iopamidol (Isovue Multipack-370 (76%)) 100 ml IVPUSH ONETIME STA Stop: 01/05/17 15:07 Last Admin: 01/05/17 15:07 Dose: 100 ml Morphine Sulfate (Morphine) 2 mg IV ONETIME ONE Stop: 01/05/17 16:14 Last Admin: 01/05/17 17:08 Dose: 2 mg Nicotine (Habitrol) 21 mg TRDERM DAILY [facility] Last Admin: 01/06/17 09:13 Dose: 21 mg Ondansetron HCl (Zofran) 8 mg IVPUSH ONETIME ONE Stop: 01/05/17 14:01 Last Admin: 01/05/17 14:16 Dose: 8 mg Ondansetron HCl (Zofran) 4 mg IVPUSH Q4H PRN PRN Reason: Nausea Pantoprazole Sodium (Protonix Iv) 80 mg IVPUSH .BOLUS ONE Stop: 01/05/17 14:01 Last Admin: 01/05/17 14:16 Dose: 80 mg Pantoprazole Sodium (Protonix Iv) 40 mg IV DAILY [facility] - Free Text/Narrative Note: Dr. Adams writes: I have examined this patient today, and I have reviewed his data and care with Dina MACHADO. I concur with her note and plan for this patient's care. I more suspicious of alcohol than other reasons for his pancreatitis.
--- NOTE | 2017-01-06 08:48 | US ---
EXAMINATION: Right upper quadrant ultrasound HISTORY: Pancreatitis COMPARISON: 01/05/2017 TECHNIQUE: Grayscale and color Doppler images obtained of the right upper quadrant. FINDINGS: The visualized pancreas appears normal. The liver is moderate to severely increased in gene ralized echogenicity. No focal hepatic mass. The gallbladder wall thickness is normal. No pericholecy stic fluid or shadowing gallstones. The common bile duct measures 2 mm. The right kidney measures at least 12.2 cm [id number] without evidence of hydronephrosis. Sonographic Cabezas sign is not reporte d. IMPRESSION: 1. Moderate to severe fatty infiltration of the liver. 2. Otherwise grossly unremarkable right upper quadrant.
[2017-01-06] MEDS ORDERED: Pantoprazole 40 MG in Sodium Chloride 0.9% 10 ML IV SCH (09:00)
[2017-01-06] MEDS ORDERED: Enoxaparin 40 MG/0.4 ML Syringe SUBCUT SCH (09:00)
[2017-01-06] MEDS ORDERED: Pantoprazole 40 MG Vial IV SCH (09:00)
[2017-01-06] MEDS: Ciprofloxacin/Hydrocortisone Otic Susp 10 ML Bottle EARRT SCH (09:10)
[2017-01-06] MEDS: Nicotine 21 MG/24 Hr Patch TRDERM SCH (09:13)
[2017-01-06 12:12] VITALS: BP 136/81
--- NOTE | 2017-01-06 14:51 | PCM.DCSUM1 ---
<Dina Dent - Last Filed: 01/06/17 14:53> Discharge Summary - Hospital Course Brief History: This 31 year old male with pmh of tubes to bilateral ears, heavy tobacco use and obesity presented to the ED with 1 week of left abdominal pain and epigastric pain. He reports this pain started about 1 week ago, denies fever , lower abdominal pain, some diarrhea, but this is not changed from his normal. Some pain with eating but no nausea or vomiting. He confirms drinking heavily a couple weeks ago and having a few nights with drinking, but denies drinking on a daily basis. He did have a few drinks last evening which worsened his pain. He does have a history of gastric ulcers and GERD. He normally just takes Tums for this. He is allergic to NSAIDs, so he does not take these. He also mentioned his R ear has been sore lately, with some drainage noted. In the ED leukocytosis noted, 14,000 lipase 187. Abdominal/Pelvis CT revealed no acute findings, but noted fatty infiltration of liver. He will be admitted for pancreatitis. He was given 1 l bolus NS in ED and morphine for pain. - Discharge Data Discharge Date: 01/06/17 Discharge Disposition: Home, Self-Care 01 Condition: Good - Discharge Diagnosis/Problem(s) (1) Acute pancreatitis SNOMED Code(s): 821733229 ICD Code: K85.90 - ACUTE PANCREATITIS WITHOUT NECROSIS OR INFECTION, UNSP Status: Acute QualifierTitle: Pancreatitis type: alcohol induced Acute pancreatitis complication: no infection or necrosis Qualified Code(s): K85.20 - Alcohol induced acute pancreatitis without necrosis or infection (2) Acute otitis media SNOMED Code(s): 7597772 ICD Code: H66.90 - OTITIS MEDIA, UNSPECIFIED, UNSPECIFIED EAR Status: Acute QualifierTitle: Otitis media type: serous Laterality: right Recurrence : not specified as recurrent Qualified Code(s): H65.01 - Acute serous otitis media, right ear (3) Obesity SNOMED Code(s): 550965818 ICD Code: E66.9 - OBESITY, UNSPECIFIED Status: Chronic QualifierTitle: Obesity type: due to excess calories Serious obesity comorbidity presence: without serious comorbidity Body mass index: BMI 45.0- 49.9 - Patient Instructions Diet: GI Soft/Low Residue/Low Fiber (Low fat) Activity: As Tolerated Activity, Other: No alcohol intake, and quit smoking! Driving: May Drive Today Showering/Bathing: May Shower Notify Provider of: Fever, Increased Pain, Swelling and Redness, Drainage, Nausea and/or Vomiting - Discharge Plan Home Medications: Home Meds . [No Known Home Meds] 01/05/17 [History] Patient Handouts: Acute Pancreatitis Referrals: Mustapha Lundberg PA [Physician Open Developer Operator] - 01/19/17 1:00 pm - Discharge Summary/Plan Comment DC Time >30 min.: No Discharge Summary/Plan Comment: Discharge Plan: Acute pancreatitis secondary to alcohol use Obesity tobacco use, heavy Chalino was admitted and treated with aggressive IVF ydration and bowel rest. He was given IV analgesia for pain, but had very little pain over night. Today labwork improved, leukocytosis resolved and AST/ALT improved to normal as well. He was transitioned to FL/soft diet and has done well with no pain or N/V. He was highly encouraged to stop drinking and educated on smoking cessation. He will be discharged home on low fat soft diet for next few days then low fat diet. He is to return to ED or clinic if concerns should arise. Follow up arranged with PCP in 1 week. - General Info Date of Service: 01/06/17 Admission Dx/Problem (Free Text: Admission Diagnosis/Problem Admission Diagnosis/Problem Pancreatitis Subjective Update: No chest pain, SOB or palpitations abdominal pain is much better and he is tolerating diet. Functional Status: Reports: Pain Controlled, Tolerating Diet, Ambulating, Urinating - Review of Systems General: Reports: No Symptoms. Denies: Fever, Weakness, Fatigue Pulmonary: Reports: No Symptoms. Denies: Shortness of Breath Cardiovascular: Reports: No Symptoms. Denies: Chest Pain Gastrointestinal: Reports: Abdominal Pain (tender to epigastric region.) Genitourinary: Reports: No Symptoms. Denies: Dysuria, Frequency, Burning Neurological: Reports: No Symptoms. Denies: Confusion Psychiatric: Reports: No Symptoms. Denies: Confusion - Patient Data Vitals - Most Recent: Last Vital Signs Temp 97.8 F 01/06/17 12:10 Pulse 80 01/06/17 12:10 Resp 14 01/06/17 12:10 BP 136/81 01/06/17 12:10 Pulse Ox 96 10/17/17 12:10 Weight - Most Recent: 180 kg I&O - Last 24 hours: Intake & Output 01/05/17 01/06/17 01/06/17 22:59 06:59 14:59 Intake Total 1000 2000 1010 Output Total 1650 Balance 0571 228 0826 Lab Results - Last 24 hrs: Laboratory Results - last 24 hr 01/06/17 01/06/17 01/06/17 Range/Units 04:52 04:52 04:52 WBC 10.14 (4.0-11.0) K/uL RBC 4.76 (4.50-5.90) M/uL Hgb 14.5 (13.0-17.0) g/dL Hct 43.1 (38.0-50.0) % MCV 90.5 (80.0-98.0) fL MCH 30.5 (27.0-32.0) pg MCHC 33.6 (31.0-37.0) g/dL RDW Std Deviation 44.5 (28.0-62.0) fl RDW Coeff of Ananda 14 (11.0-15.0) % Plt Count 255 (150-400) K/uL MPV 10.90 (7.40-12.00) fL Neut % (Auto) 57.1 (48.0-80.0) % Lymph % (Auto) 31.5 (16.0-40.0) % [place] % (Auto) 6.9 (0.0-15.0) % Eos % (Auto) 4.0 (0.0-7.0) % Baso % (Auto) 0.5 (0.0-1.5) % Neut # (Auto) 5.8 H (1.4-5.7) K/uL Lymph # (Auto) 3.2 H (0.6-2.4) K/uL [place] # (Auto) 0.7 (0.0-0.8) K/uL Eos # (Auto) 0.4 (0.0-0.7) K/uL Baso # (Auto) 0.1 (0.0-0.1) K/uL Nucleated RBC % 0.0 /100WBC Nucleated RBCs # 0 K/uL Sodium 141 (136-146) mmol/L Potassium 3.9 (3.5-5.1) mmol/L Chloride 110 (98-110) mmol/L Carbon Dioxide 23 (21-31) mmol/L BUN 14 (6.0-23.0) mg/dL Creatinine 1.1 (0.6-1.5) mg/dL Est Cr Clr Drug Dosing 124.88 mL/min Estimated GFR (MDRD) > 60.0 ml/min Glucose 92 (60-110) mg/dL Calcium 8.5 L (8.8-10.8) mg/dL Total Bilirubin 0.5 (0.1-1.5) mg/dL AST 35 (5-40) IU/L ALT 50 (8-54) IU/L Alkaline Phosphatase 50 (40-150) Total Protein 6.0 (6.0-8.0) g/dL Albumin 3.4 L (3.5-5.0) g/dL Globulin 2.6 (2.0-3.5) g/dL Albumin/Globulin Ratio 1.3 (1.3-2.8) Lipase 77 (7-80) U/L Med Orders - Current: Current Medications Ciprofloxacin/Hydrocortisone (Cipro Hc Otic Susp) 3 ml EARRT BID [facility] Last Admin: 01/06/17 09:10 Dose: 3 drop Enoxaparin Sodium (Lovenox) 40 mg SUBCUT DAILY [facility] Last Admin: 01/06/17 09:16 Dose: 40 mg Sodium Chloride (Normal Saline) 1,000 mls @ 250 mls/hr IV ASDIRECTED [facility] Last Admin: 01/06/17 10:23 Dose: 250 mls/hr Pantoprazole Sodium 40 mg/ (Sodium Chloride) 10 mls @ 300 mls/hr IV DAILY [facility] Last Admin: 01/06/17 09:17 Dose: 300 mls/hr Nicotine (Habitrol) 21 mg TRDERM DAILY [facility] Last Admin: 01/06/17 09:13 Dose: 21 mg Ondansetron HCl (Zofran) 4 mg IVPUSH Q4H PRN PRN Reason: Nausea Discontinued Medications Hydromorphone HCl (Dilaudid) 0.5 mg IVPUSH Q2H PRN PRN Reason: Pain (severe 7-10) Last Admin: 01/05/17 21:59 Dose: 0.5 mg Sodium Chloride (Normal Saline) 1,000 mls @ 999 mls/hr IV STAT ONE Stop: 01/05/17 15:00 Last Admin: 01/05/17 14:15 Dose: 999 mls/hr Sodium Chloride (Normal Saline) 1,000 mls @ 999 mls/hr IV STAT ONE Stop: 01/05/17 17:13 Last Admin: 01/05/17 17:07 Dose: 999 mls/hr Sodium Chloride (Normal Saline) 1,000 mls @ 999 mls/hr IV .BOLUS [facility] Last Admin: 01/05/17 19:44 Dose: 999 mls/hr Iopamidol (Isovue Multipack-370 (76%)) 100 ml IVPUSH ONETIME STA Stop: 01/05/17 15:07 Last Admin: 01/05/17 15:07 Dose: 100 ml Morphine Sulfate (Morphine) 2 mg IV ONETIME ONE Stop: 01/05/17 16:14 Last Admin: 01/05/17 17:08 Dose: 2 mg Ondansetron HCl (Zofran) 8 mg IVPUSH ONETIME ONE Stop: 01/05/17 14:01 Last Admin: 01/05/17 14:16 Dose: 8 mg Pantoprazole Sodium (Protonix Iv) 80 mg IVPUSH .BOLUS ONE Stop: 01/05/17 14:01 Last Admin: 01/05/17 14:16 Dose: 80 mg Pantoprazole Sodium (Protonix Iv) 40 mg IV DAILY [facility] - Exam General: Reports: Alert, Oriented, Cooperative, No Acute Distress Lungs: Reports: Clear to Auscultation, Normal Respiratory Effort Cardiovascular: Reports: Regular Rate, Regular Rhythm GI/Abdominal Exam: Normal Bowel Sounds, Soft, No Organomegaly, No Distention, No Abnormal Bruit, No Mass, Pelvis Stable, Tender (scant tenderness to epigastric region.) Extremities: Normal Inspection, Normal Range of Motion, Non-Tender, No Pedal Edema, Normal Capillary Refill Psy/Mental Status: Reports: Alert, Normal Affect, Normal Mood *Q Meaningful Use (DIS) - VTE *Q VTE Criteria *Q: - Stroke *Q Stroke Criteria *Q: - AMI *Q AMI Criteria *Q: <Tre Adams - Last Filed: 01/06/17 16:51> - Patient Data Vitals - Most Recent: Last Vital Signs Temp 36.6 C 01/06/17 12:10 Pulse 80 01/06/17 12:10 Resp 14 01/06/17 12:10 BP 136/81 01/06/17 12:10 Pulse Ox 96 01/06/17 12:10 I&O - Last 24 hours: Intake & Output 01/06/17 01/06/17 01/06/17 06:59 14:59 22:59 Intake Total 2000 1010 670 Output Total 1650 800 Balance 350 1010 -130 Lab Results - Last 24 hrs: Laboratory Results - last 24 hr 01/06/17 01/06/17 01/06/17 Range/Units 04:52 04:52 04:52 WBC 10.14 (4.0-11.0) K/uL RBC 4.76 (4.50-5.90) M/uL Hgb 14.5 (13.0-17.0) g/dL Hct 43.1 (38.0-50.0) % MCV 90.5 (80.0-98.0) fL MCH 30.5 (27.0-32.0) pg MCHC 33.6 (31.0-37.0) g/dL RDW Std Deviation 44.5 (28.0-62.0) fl RDW Coeff of Ananda 14 (11.0-15.0) % Plt Count 255 (150-400) K/uL MPV 10.90 (7.40-12.00) fL Neut % (Auto) 57.1 (48.0-80.0) % Lymph % (Auto) 31.5 (16.0-40.0) % [place] % (Auto) 6.9 (0.0-15.0) % Eos % (Auto) 4.0 (0.0-7.0) % Baso % (Auto) 0.5 (0.0-1.5) % Neut # (Auto) 5.8 H (1.4-5.7) K/uL Lymph # (Auto) 3.2 H (0.6-2.4) K/uL [place] # (Auto) 0.7 (0.0-0.8) K/uL Eos # (Auto) 0.4 (0.0-0.7) K/uL Baso # (Auto) 0.1 (0.0-0.1) K/uL Nucleated RBC % 0.0 /100WBC Nucleated RBCs # 0 K/uL Sodium 141 (136-146) mmol/L Potassium 3.9 (3.5-5.1) mmol/L Chloride 110 (98-110) mmol/L Carbon Dioxide 23 (21-31) mmol/L BUN 14 (6.0-23.0) mg/dL Creatinine 1.1 (0.6-1.5) mg/dL Est Cr Clr Drug Dosing 124.88 mL/min Estimated GFR (MDRD) > 60.0 ml/min Glucose 92 (60-110) mg/dL Calcium 8.5 L (8.8-10.8) mg/dL Total Bilirubin 0.5 (0.1-1.5) mg/dL AST 35 (5-40) IU/L ALT 50 (8-54) IU/L Alkaline Phosphatase 50 (40-150) Total Protein 6.0 (6.0-8.0) g/dL Albumin 3.4 L (3.5-5.0) g/dL Globulin 2.6 (2.0-3.5) g/dL Albumin/Globulin Ratio 1.3 (1.3-2.8) Lipase 77 (7-80) U/L Med Orders - Current: Current Medications Discontinued Medications Ciprofloxacin/Hydrocortisone (Cipro Hc Otic Susp) 3 ml EARRT BID [facility] Last Admin: 01/06/17 09:10 Dose: 3 drop Enoxaparin Sodium (Lovenox) 40 mg SUBCUT DAILY [facility] Last Admin: 01/06/17 09:16 Dose: 40 mg Hydromorphone HCl (Dilaudid) 0.5 mg IVPUSH Q2H PRN PRN Reason: Pain (severe 7-10) Last Admin: 01/05/17 21:59 Dose: 0.5 mg Sodium Chloride (Normal Saline) 1,000 mls @ 999 mls/hr IV STAT ONE Stop: 01/05/17 15:00 Last Admin: 01/05/17 14:15 Dose: 999 mls/hr Sodium Chloride (Normal Saline) 1,000 mls @ 999 mls/hr IV STAT ONE Stop: 01/05/17 17:13 Last Admin: 01/05/17 17:07 Dose: 999 mls/hr Sodium Chloride (Normal Saline) 1,000 mls @ 250 mls/hr IV ASDIRECTED [facility] Last Admin: 01/06/17 10:23 Dose: 250 mls/hr Sodium Chloride (Normal Saline) 1,000 mls @ 999 mls/hr IV .BOLUS [facility] Last Admin: 01/05/17 19:44 Dose: 999 mls/hr Pantoprazole Sodium 40 mg/ (Sodium Chloride) 10 mls @ 300 mls/hr IV DAILY [facility] Last Admin: 01/06/17 09:17 Dose: 300 mls/hr Iopamidol (Isovue Multipack-370 (76%)) 100 ml IVPUSH ONETIME STA Stop: 01/05/17 15:07 Last Admin: 01/05/17 15:07 Dose: 100 ml Morphine Sulfate (Morphine) 2 mg IV ONETIME ONE Stop: 01/05/17 16:14 Last Admin: 01/05/17 17:08 Dose: 2 mg Nicotine (Habitrol) 21 mg TRDERM DAILY [facility] Last Admin: 01/06/17 09:13 Dose: 21 mg Ondansetron HCl (Zofran) 8 mg IVPUSH ONETIME ONE Stop: 01/05/17 14:01 Last Admin: 01/05/17 14:16 Dose: 8 mg Ondansetron HCl (Zofran) 4 mg IVPUSH Q4H PRN PRN Reason: Nausea Pantoprazole Sodium (Protonix Iv) 80 mg IVPUSH .BOLUS ONE Stop: 01/05/17 14:01 Last Admin: 01/05/17 14:16 Dose: 80 mg Pantoprazole Sodium (Protonix Iv) 40 mg IV DAILY [facility] *Q Meaningful Use (DIS) - VTE *Q VTE Criteria *Q: - Stroke *Q Stroke Criteria *Q: - AMI *Q AMI Criteria *Q: - Free Text/Narrative Note: This patient has pushed his course of treatment along faster than expected. He reports no pain today and had lower WBC. He did take simple foods today and did not experience pain. He was educated that he should eat low fat foods for at least a couple of weeks to help his pancreas heal. I concur with Dina Dent SMT TECHNICIAN's note and plan.
== END 2017-01-06 15:45 | disposition home or self-care (01) | DRG 282 ==
LOC: MW.ED 12:31 → MW.MS 16:12
PROVIDERS: ADMIT Family Medicine; ATTEND Family Medicine
DX: K85.20 Alcohol induced acute pancreatitis without necrosis or infection (principal); H65.01 Acute serous otitis media, right ear; Z88.8 Allergy status to other drugs, medicaments and biological substances; F17.210 Nicotine dependence, cigarettes, uncomplicated; K21.9 Gastro-esophageal reflux disease without esophagitis; E66.9 Obesity, unspecified; Z68.42 Body mass index [BMI] 45.0-49.9, adult
CPT/HCPCS: 36415; 74177; 74177-26; 76705; 76705-26; 80053; 80061; 81001; 82150; 83690; 84484; 85025; 96361; 96374; 96375; 99282; 99285-25; A9270-GY; C9113; J1170; J1650; J2270; J2405; J7040; Q9967

== ENCOUNTER 2018-10-01 12:43 | Emergency (ER) | payer SELFPAY ==
--- NOTE | 2018-10-01 12:46 | EDM.PDOC ---
ED HPI GENERAL MEDICAL PROBLEM - General Chief Complaint: Bite:Animal, Insect Stated Complaint: DOG BITE Time Seen by Provider: 10/01/18 12:45 Source of Information: Reports: Patient History Limitations: Reports: No Limitations - History of Present Illness INITIAL COMMENTS - FREE TEXT/NARRATIVE: History of present illness: []Patient was bitten on his right hand yesterday [place] collar on. Patient is up-to-date with tetanus, has no limitation on moving his hand and has not had any fevers. Patient states he always has high blood pressure when he comes to the ER but denies any other symptoms. Review of systems: As per history of present illness and below otherwise all systems reviewed and negative. Past medical history: As per history of present illness and as reviewed below otherwise noncontributory. Surgical history: As per history of present illness and as reviewed below otherwise noncontributory. Social history: No reported history of drug or alcohol abuse. Family history: As per history of present illness and as reviewed below otherwise noncontributory. Physical exam: General: Well developed, well nourished in NAD HEENT: Atraumatic, normocephalic, pupils reactive, negative for conjunctival pallor or scleral icterus, mucous membranes moist, throat clear, neck supple, nontender, trachea midline. Lungs: Clear to auscultation, breath sounds equal bilaterally, chest nontender. Heart: S1S2, regular, negative for clicks, rubs, or JVD. Abdomen: NABS, Soft, nondistended, nontender. Negative for masses or hepatosplenomegaly. Negative for costovertebral tenderness. Pelvis: Stable nontender. Genitourinary: Deferred. Rectal: Deferred. Extremities: Right hand with dorsal puncture wound at the base of the middle finger, mild swelling, no limitation on movement of hand and station intact, brisk capillary refill, negative for cords or calf pain. Neurovascular unremarkable. Neuro: Awake, alert, oriented. Cranial nerves II through XII unremarkable. Cerebellum unremarkable. Motor and sensory unremarkable throughout. Exam nonfocal. Skin:warm and dry Diagnostics: Hand x-ray-no fractures or gas Therapeutics: Declined pain meds ED Course: Stable Impression: Dog bite right hand Prescriptions: Augmentin Plan: Take meds as directed, follow up with your primary care physician, return to ER if symptoms worsen or change. Definitive disposition and diagnosis as appropriate pending reevaluation and review of above. right hand Pain Score (Numeric/FACES): 5 - Related Data Allergies Allergy/AdvReac Type Severity Reaction Status Date / Time ibuprofen Allergy Swollen Verified 01/05/17 13:55 Tongue Home Meds: Home Meds Amoxicillin/Clavulanate K [Augmentin 875-125 MG] 1 tab PO BID #20 tablet [Rx] Past Medical History HEENT History: Reports: Other (See Below) Other HEENT History: tubes in both ears Cardiovascular History: Reports: None. Denies: Afib, Blood Clots/VTE/DVT, CAD, Hypertension, NE Respiratory History: Reports: None. Denies: Asthma, COPD Gastrointestinal History: Reports: GERD Genitourinary History: Reports: None Musculoskeletal History: Reports: Fracture Endocrine/Metabolic History: Reports: Obesity/BMI 30+. 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) ED ROS GENERAL - Review of Systems Review Of Systems: See Below ED EXAM, ANIMAL BITE - Physical Exam Exam: See Below Course - Vital Signs Last Recorded V/S: Last Vital Signs Temp 97.7 F 10/01/18 12:51 Pulse 115 H 10/01/18 12:51 Resp 20 10/01/18 12:51 BP 163/105 H 10/01/18 12:51 Pulse Ox 94 L 10/01/18 12:51 - Orders/Labs/Meds Orders: Active Orders 24 hr Category Date Time Status Hand Comp Min 3V Rt [CR] Stat Exams 10/01/18 12:50 Ordered Departure - Departure Time of Disposition: 13:14 Disposition: Home, Self-Care 01 Condition: Good Clinical Impression: Dog bite Qualifiers: Encounter type: initial encounter Qualified Code(s): W54.0XXA - Bitten by dog, initial encounter - Discharge Information *PRESCRIPTION DRUG MONITORING PROGRAM REVIEWED*: No *COPY OF PRESCRIPTION DRUG MONITORING REPORT IN PATIENT EDIE: No Prescriptions: Amoxicillin/Clavulanate K [Augmentin 875-125 MG] 1 tab PO BID #20 tablet Referrals: PCP,None [Primary Care Provider] - Forms: ED Department Discharge Additional Instructions: The following information is given to patients seen in the emergency department who are being discharged to home. This information is to outline your options for follow-up care. We provide all patients seen in our emergency department with a follow-up referral. The need for follow-up, as well as the timing and circumstances, are variable depending upon the specifics of your emergency department visit. If you don't have a primary care physician on staff, we will provide you with a referral. We always advise you to contact your personal physician following an emergency department visit to inform them of the circumstance of the visit and for follow-up with them and/or the need for any referrals to a consulting specialist. The emergency department will also refer you to a specialist when appropriate. This referral assures that you have the opportunity for follow-up care with a specialist. All of these measure are taken in an effort to provide you with optimal care, which includes your follow-up. Under all circumstances we always encourage you to contact your private physician who remains a resource for coordinating your care. When calling for follow-up care, please make the office aware that this follow-up is from your recent emergency room visit. If for any reason you are refused follow-up, please contact the [facility] Emergency Department at and asked to speak to the emergency department charge nurse. Take meds as directed, follow up with your primary care physician, return to ER if symptoms worsen or change. [facility] [address] [place] [id number] - My Orders Last 24 Hours: My Active Orders 10/01/18 12:50 Hand Comp Min 3V Rt [CR] Stat - Assessment/Plan Last 24 Hours: My Active Orders 10/01/18 12:50 Hand Comp Min 3V Rt [CR] Stat
[2018-10-01 12:55] VITALS: BP 163/105
--- NOTE | 2018-10-01 13:43 | CR ---
INDICATION: Pain and swelling after dog bite. COMPARISON: None available. TECHNIQUE: The right hand is examined with PA, lateral, and oblique views. FINDINGS: There is no sign of acute fracture or dislocation. There is mild deformity of the distal shaft of the 5th metacarpal from an old, healed fracture. There is mild diffuse soft tissue swelling of the hand overlying the metacarpals, more prominent overlying the 5th metacarpal. There is mild streaky low density within the soft tissues raising the possibility of abscess formation There is no sign of any radiopaque foreign body in the soft tissues. No significant degenerative disease is seen. IMPRESSION: No sign of acute osseous injury. Mild soft tissue swelling overlying the metacarpals, more prominent in the area of the 5th metacarpal, with mild streaky low density raising the possibility of abscess formation. Dictated by Thanh Mckeon MD @ Oct 01 2018 1:40PM Signed by Dr. Thanh Mckeon @ Oct 01 2018 1:42PM
== END 2018-10-01 13:43 | disposition home or self-care (01) ==
LOC: MW.ED 12:43
DX: S61.451A Open bite of right hand, initial encounter (principal); E66.9 Obesity, unspecified; Z88.6 Allergy status to analgesic agent; W54.0XXA Bitten by dog, initial encounter
CPT/HCPCS: 73130-26-RT; 73130-RT; 99283

== ENCOUNTER 2021-07-11 00:14 | Emergency (ER) | payer SELFPAY ==
[2021-07-11 00:45] VITALS: BP 153/87; PULSE 76
== END 2021-07-11 00:40 | disposition home or self-care (01) ==
LOC: MW.ED 00:14
DX: H66.91 Otitis media, unspecified, right ear (principal); H60.501 Unspecified acute noninfective otitis externa, right ear; E11.9 Type 2 diabetes mellitus without complications; E66.9 Obesity, unspecified; Z68.37 Body mass index [BMI] 37.0-37.9, adult; Z88.6 Allergy status to analgesic agent; Z79.899 Other long term (current) drug therapy
CPT/HCPCS: 99282

== ENCOUNTER 2022-01-03 07:40 | Emergency (ER) | payer SELFPAY ==
[2022-01-03] MEDS ORDERED: Morphine 4 MG/ML Syringe IVPUSH STA (09:07)
[2022-01-03 09:14] LABS: BLOOD UREA NITROGEN,BUN 19 mg/dL (7.0-18.0); CARBON DIOXIDE,CO2 25.8 mmol/L (21.0-32.0); CHLORIDE,CL 105 mmol/L (98-107); GLUCOSE RANDOM 116 mg/dL (74-106); POTASSIUM,K 4.3 mmol/L (3.5-5.1); SODIUM,NA 143 mmol/L (136-148)
[2022-01-03 09:33] LABS: ESTIMATED GFR 90 mL/min (>60)
[2022-01-03] MEDS ORDERED: ceFAZolin/Dextrose,Iso-Osmotic 2 GM/50 ML Duplex Bag (Premix) IV STA (11:13)
[2022-01-03] MEDS ORDERED: Lidocaine 2% Viscous Solution 15 ML UD PO ONE (11:22)
[2022-01-03 14:34] VITALS: BP 124/80; PULSE 81
== END 2022-01-03 14:33 | disposition home or self-care (01) ==
LOC: MW.ED 07:40
DX: S09.90XA Unspecified injury of head, initial encounter (principal); S01.512A Laceration without foreign body of oral cavity, initial encounter; E66.9 Obesity, unspecified; Z68.37 Body mass index [BMI] 37.0-37.9, adult; Z88.6 Allergy status to analgesic agent; Z20.822 Contact with and (suspected) exposure to COVID-19; V43.52XA Car driver injured in collision with other type car in traffic accident, initial encounter; Y92.410 Unspecified street and highway as the place of occurrence of the external cause
CPT/HCPCS: 12013; 36415; 70450; 70486; 71045; 72125; 72170; 80053; 80307; 82550; 85025; 87635; 93005; 96365; 96375; 99285; A9270; J0690; J2270; 93010; 99284; U0002

== ENCOUNTER 2022-04-22 07:36 | Emergency (ER) | payer SELFPAY ==
[2022-04-22 07:59] VITALS: BP 147/95; PULSE 101
[2022-04-22] MEDS ORDERED: oxyCODONE 5 MG Tab PO ONE (08:18)
[2022-04-22] MEDS ORDERED: Ondansetron 4 MG Tab.DIS PO ONE (08:18)
[2022-04-22 08:29] LABS: CORONAVIRUS COVID-19 NAA NEGATIVE (NEGATIVE); INFLUENZA A NAA NEGATIVE (NEGATIVE); INFLUENZA B NAA NEGATIVE (NEGATIVE)
== END 2022-04-22 09:10 | disposition home or self-care (01) ==
LOC: MW.ED 07:36
DX: J32.9 Chronic sinusitis, unspecified (principal); E66.9 Obesity, unspecified; Z68.37 Body mass index [BMI] 37.0-37.9, adult; Z72.0 Tobacco use; Z88.6 Allergy status to analgesic agent; Z20.822 Contact with and (suspected) exposure to COVID-19
CPT/HCPCS: 0240U; 99283; A9270